=== PATIENT | male | born 1970 | race Caucasian/White ===

== ENCOUNTER 2017-11-15 03:08 | Emergency (ER) | payer MEDICARE, OTHER ==
[~2017-11-15] VITALS: Ht 182.9 cm; Wt 172.4 kg
[~2017-11-15 03:08] MED LIST: ASPI325 PO; ASPI81CH PO; GLIM4 PO; GLIP10 PO; IBUP600 PO; LISI20 PO; METF500 PO; METF500C PO; Metformin HCl1000 MG PO; Nitroglycerin0.4 MG SL; PIOG30 PO; Prinivil10 MG PO; SIMV40 PO; Simvastatin20 MG PO
[2017-11-15] MEDS ORDERED: IBUP600 PO (03:17)
[2017-11-15] MEDS ORDERED: INSULANPEN SC (03:18)
[2017-11-15 03:29] LABS: BASOPHILS ABSOLUTE AUTO 0.04 K/mm3 (0.00-0.23); BASOPHILS PERCENT AUTO 1 % (0-2); EOSINOPHILS ABSOLUTE AUTO 0.17 K/mm3 (0.00-0.68); EOSINOPHILS PERCENT AUTO 2 % (0-6); Hematocrit 41.3 % (37.0-53.0); Hemoglobin 14.1 g/dL (13.5-17.5); IMMATURE GRAN ABSOLUTE AUTO 0.02 K/mm3 (0.00-0.10); IMMATURE GRAN PERCENT AUTO 0 % (0-1); LYMPHOCYTES ABSOLUTE AUTO 2.18 K/mm3 (0.84-5.20); LYMPHOCYTES PERCENT AUTO 27 % (21-46); MONOCYTES ABSOLUTE AUTO 0.82 K/mm3 (0.16-1.47); MONOCYTES PERCENT AUTO 10 % (4-13); Mean Corpuscular HGB 28.6 pg (26.0-34.0); Mean Corpuscular HGB Conc 34.1 g/dL (31.5-36.5); Mean Corpuscular Volume 84 fL (80-100); Mean Platelet Volume 11.2 fL (9.1-12.4); NEUTROPHILS ABSOLUTE AUTO 4.86 K/mm3 (1.96-9.15); NEUTROPHILS PERCENT AUTO 60 % (41-73); Platelet Count 125 K/mm3 (150-400); RDW Coefficient Variation 12.6 % (11.7-14.2); RDW Standard Deviation 37.7 fL (35.1-46.3); Red Blood Cell Count 4.93 M/mm3 (4.30-5.90); White Blood Cell Count 8.09 K/mm3 (4.00-11.30)
[2017-11-15 03:47] LABS: Alanine Aminotransfer (ALT/SGP 39 U/L (12-78); Albumin, Blood 3.5 g/dL (3.4-5.0); Alk Phos 91 U/L (50-136); Anion Gap 7 mmol/L (6-16); Aspartate Aminotrans (AST/SGOT 19 U/L (12-37); Bilirubin, Total 0.3 mg/dL (0.1-1.0); Blood Urea Nitrogen 18 mg/dL (8-24); Bun/Creatinine Ratio 25.2 (12.0-20.0); CO2, Blood 29 mmol/L (21-32); Calcium, Blood 8.8 mg/dL (8.5-10.1); Chloride, Blood 101 mmol/L (98-108); Creatinine, Blood 0.71 mg/dL (0.60-1.20); Globulin, Blood 3.5 g/dL (2.2-4.0); Glomerular Filtration Rate >60 (60-); Glucose, Blood 271 mg/dL (70-99); Potassium, Blood 4.1 mmol/L (3.5-5.5); Sodium, Blood 137 mmol/L (136-145); Troponin I <0.015 ng/mL (0.000-0.040)
[2018-01-22] MEDS ORDERED: HYDCHL25 PO (10:07)
[2018-01-22] MEDS ORDERED: Omeprazole20 M1 PO (10:07)
[2018-01-22] MEDS ORDERED: Triamcinolone A15 G3 TOP (10:08)
== END 2017-11-15 04:47 | disposition home or self-care (01) ==
LOC: ER 03:08
PROVIDERS: Emergency Medicine
DX: R07.89 Other chest pain (principal); Z79.899 Other long term (current) drug therapy; Z79.82 Long term (current) use of aspirin; Z79.4 Long term (current) use of insulin; Z79.84 Long term (current) use of oral hypoglycemic drugs; E11.9 Type 2 diabetes mellitus without complications; I10 Essential (primary) hypertension; E78.00 Pure hypercholesterolemia, unspecified; Z87.891 Personal history of nicotine dependence
CPT/HCPCS: 36415; 71046; 80053; 83690; 84484; 85025; 93005; 93010; 99283

== ENCOUNTER → 2017-12-15 | Outpatient (CLI) | payer MEDICARE, OTHER ==
[~2017-12-15] MED LIST changes: +INSULANPEN
== END | disposition home or self-care (01) ==
LOC: LAB SHORT 09:00 → LAB 09:00
DX: L02.413 Cutaneous abscess of right upper limb (principal)
CPT/HCPCS: 87070; 87077; 87186; 87205

== ENCOUNTER 2018-02-20 01:52 | Observation (INO) | payer MEDICARE, OTHER ==
[~2018-02-20] VITALS: Ht 180.3 cm; Wt 164.9 kg
[~2018-02-20 01:52] MED LIST changes: +HYDCHL25 PO; -INSULANPEN; +INSULANPEN SC; +Omeprazole20 M1 PO; +Triamcinolone A15 G3 TOP
[2018-02-20] MEDS ORDERED: NITR.4SL SL (02:14)
[2018-02-20 02:33] LABS: BASOPHILS ABSOLUTE AUTO 0.04 K/mm3 (0.00-0.23); BASOPHILS PERCENT AUTO 0 % (0-2); EOSINOPHILS ABSOLUTE AUTO 0.03 K/mm3 (0.00-0.68); EOSINOPHILS PERCENT AUTO 0 % (0-6); Hematocrit 39.8 % (37.0-53.0); Hemoglobin 13.9 g/dL (13.5-17.5); IMMATURE GRAN ABSOLUTE AUTO 0.08 K/mm3 (0.00-0.10); IMMATURE GRAN PERCENT AUTO 1 % (0-1); LYMPHOCYTES ABSOLUTE AUTO 1.15 K/mm3 (0.84-5.20); LYMPHOCYTES PERCENT AUTO 10 % (21-46); MONOCYTES ABSOLUTE AUTO 1.21 K/mm3 (0.16-1.47); MONOCYTES PERCENT AUTO 11 % (4-13); Mean Corpuscular HGB 28.5 pg (26.0-34.0); Mean Corpuscular HGB Conc 34.9 g/dL (31.5-36.5); Mean Corpuscular Volume 82 fL (80-100); NEUTROPHILS PERCENT AUTO 78 % (41-73); Platelet Count 144 K/mm3 (150-400); RDW Coefficient Variation 12.7 % (11.7-14.2); RDW Standard Deviation 37.6 fL (35.1-46.3); Red Blood Cell Count 4.88 M/mm3 (4.30-5.90); White Blood Cell Count 11.41 K/mm3 (4.00-11.30)
[2018-02-20 03:00] LABS: Troponin I <0.015 ng/mL (0.000-0.040)
[2018-02-20 03:01] LABS: Alanine Aminotransfer (ALT/SGP 40 U/L (12-78); Albumin, Blood 3.4 g/dL (3.4-5.0); Alk Phos 60 U/L (50-136); Anion Gap 11 mmol/L (6-16); Aspartate Aminotrans (AST/SGOT 24 U/L (12-37); Bilirubin, Total 0.6 mg/dL (0.1-1.0); Blood Urea Nitrogen 16 mg/dL (8-24); Bun/Creatinine Ratio 19.7 (12.0-20.0); CO2, Blood 26 mmol/L (21-32); Calcium, Blood 8.8 mg/dL (8.5-10.1); Chloride, Blood 97 mmol/L (98-108); Creatinine, Blood 0.81 mg/dL (0.60-1.20); Globulin, Blood 3.5 g/dL (2.2-4.0); Glomerular Filtration Rate >60 (60-); Glucose, Blood 86 mg/dL (70-99); Potassium, Blood 3.8 mmol/L (3.5-5.5); Sodium, Blood 134 mmol/L (136-145); Total Protein, Blood 6.9 g/dL (6.4-8.2)
[2018-02-20 11:03] LABS: Hematocrit 38.2 % (37.0-53.0); Hemoglobin 13.3 g/dL (13.5-17.5); Mean Corpuscular HGB 28.7 pg (26.0-34.0); Mean Corpuscular HGB Conc 34.8 g/dL (31.5-36.5); Mean Corpuscular Volume 82 fL (80-100); Mean Platelet Volume 11.6 fL (9.1-12.4); Platelet Count 104 K/mm3 (150-400); RDW Coefficient Variation 12.8 % (11.7-14.2); RDW Standard Deviation 38.5 fL (35.1-46.3); Red Blood Cell Count 4.64 M/mm3 (4.30-5.90); White Blood Cell Count 9.29 K/mm3 (4.00-11.30)
[2018-02-20 11:14] LABS: CPK Creatine Kinase 152 U/L (39-308); Troponin I <0.015 ng/mL (0.000-0.040)
[2018-02-20 11:30] LABS: Alanine Aminotransfer (ALT/SGP 38 U/L (12-78); Albumin, Blood 3.3 g/dL (3.4-5.0); Alk Phos 58 U/L (50-136); Anion Gap 10 mmol/L (6-16); Aspartate Aminotrans (AST/SGOT 20 U/L (12-37); Bilirubin, Total 0.6 mg/dL (0.1-1.0); Blood Urea Nitrogen 15 mg/dL (8-24); Bun/Creatinine Ratio 19.8 (12.0-20.0); CO2, Blood 28 mmol/L (21-32); Calcium, Blood 8.6 mg/dL (8.5-10.1); Chloride, Blood 96 mmol/L (98-108); Creatinine, Blood 0.76 mg/dL (0.60-1.20); Globulin, Blood 3.4 g/dL (2.2-4.0); Glomerular Filtration Rate >60 (60-); Glucose, Blood 134 mg/dL (70-99); Potassium, Blood 3.7 mmol/L (3.5-5.5); Sodium, Blood 134 mmol/L (136-145); Total Protein, Blood 6.7 g/dL (6.4-8.2)
[2018-02-20] MEDS ORDERED: ASPI325 PO (17:22)
[2018-02-20] MEDS ORDERED: METO50ER PO (17:23)
== END 2018-02-20 18:10 | disposition home or self-care (01) ==
LOC: ER 01:52 → MEDS 01:53
PROVIDERS: Emergency Medicine; Internal Medicine
DX: I20.0 Unstable angina (principal); R91.8 Other nonspecific abnormal finding of lung field; I82.511 Chronic embolism and thrombosis of right femoral vein; I82.531 Chronic embolism and thrombosis of right popliteal vein; E78.00 Pure hypercholesterolemia, unspecified; E11.9 Type 2 diabetes mellitus without complications; I10 Essential (primary) hypertension; E66.01 Morbid (severe) obesity due to excess calories; K21.9 Gastro-esophageal reflux disease without esophagitis; Z79.899 Other long term (current) drug therapy; Z87.891 Personal history of nicotine dependence; Z79.82 Long term (current) use of aspirin; Z68.43 Body mass index [BMI] 50.0-59.9, adult
CPT/HCPCS: 36415; 71046; 71260; 80053; 82550; 82947; 84484; 85025; 85027; 85379; 93005; 93010; 93970; 96372; 99285; G0378; J1650; J1815; Q9967

== ENCOUNTER → 2018-10-03 | Outpatient (CLI) | payer MEDICARE, OTHER ==
[~2018-10-03] MED LIST changes: +METO50ER PO; +NITR.4SL SL
== END | disposition home or self-care (01) ==
LOC: LAB 16:41 → LAB SHORT 16:41
DX: L08.0 Pyoderma (principal)
CPT/HCPCS: 87070; 87077; 87186; 87205

== ENCOUNTER → 2018-10-24 | Outpatient (CLI) | payer MEDICARE, OTHER | END | disposition home or self-care (01) | LOC: LAB 16:37 → LAB SHORT 16:37 | DX: L08.0 Pyoderma (principal) | CPT/HCPCS: 87070; 87205 ==

== ENCOUNTER → 2019-07-09 | Outpatient (CLI) | payer MEDICARE, OTHER | END | disposition home or self-care (01) | LOC: LAB SHORT 14:34 → LAB 14:34 | DX: L08.0 Pyoderma (principal); L98.499 Non-pressure chronic ulcer of skin of other sites with unspecified severity | CPT/HCPCS: 87070; 87205 ==

== ENCOUNTER → 2019-11-06 | Outpatient (CLI) | payer MEDICARE, OTHER | END | disposition home or self-care (01) | LOC: LAB SHORT 14:35 → LAB 14:35 | DX: L08.0 Pyoderma (principal) | CPT/HCPCS: 87070; 87205 ==

== ENCOUNTER → 2020-01-21 | Outpatient (CLI) | payer MEDICARE, OTHER | END | disposition home or self-care (01) | LOC: LAB 17:59 → LAB SHORT 17:59 | DX: L08.0 Pyoderma (principal) | CPT/HCPCS: 87070; 87205 ==

== ENCOUNTER 2021-05-13 19:33 | Emergency (ER) | payer MEDICARE, OTHER ==
[~2021-05-13] VITALS: Ht 182.9 cm; Wt 161.0 kg
== END 2021-05-13 22:10 | disposition home or self-care (01) ==
LOC: ER 19:33
DX: S80.811A Abrasion, right lower leg, initial encounter (principal); M25.561 Pain in right knee; I10 Essential (primary) hypertension; E11.9 Type 2 diabetes mellitus without complications; E78.5 Hyperlipidemia, unspecified; Z23 Encounter for immunization; Z79.899 Other long term (current) drug therapy; Z79.4 Long term (current) use of insulin; Z79.82 Long term (current) use of aspirin; W19.XXXA Unspecified fall, initial encounter; Y92.000 Kitchen of unspecified non-institutional (private) residence as the place of occurrence of the external cause
CPT/HCPCS: 73562-RT; 90471; 90714; 99283-25

== ENCOUNTER 2021-06-10 05:42 | Emergency (ER) | payer MEDICARE, OTHER ==
[~2021-06-10] VITALS: Ht 182.9 cm; Wt 170.1 kg
[2021-06-10 06:01] LABS: Source, Urine Clean Catch
[2021-06-10 06:04] LABS: BASOPHILS ABSOLUTE AUTO 0.05 K/mm3 (0.00-0.23); BASOPHILS PERCENT AUTO 1 % (0-2); EOSINOPHILS ABSOLUTE AUTO 0.19 K/mm3 (0.00-0.68); EOSINOPHILS PERCENT AUTO 2 % (0-6); Hematocrit 43.7 % (37.0-53.0); Hemoglobin 14.6 g/dL (13.5-17.5); IMMATURE GRAN ABSOLUTE AUTO 0.03 K/mm3 (0.00-0.10); IMMATURE GRAN PERCENT AUTO 0 % (0-1); LYMPHOCYTES ABSOLUTE AUTO 1.91 K/mm3 (0.84-5.20); LYMPHOCYTES PERCENT AUTO 21 % (21-46); MONOCYTES ABSOLUTE AUTO 0.98 K/mm3 (0.16-1.47); MONOCYTES PERCENT AUTO 11 % (4-13); Mean Corpuscular HGB 28.5 pg (26.0-34.0); Mean Corpuscular HGB Conc 33.4 g/dL (31.5-36.5); Mean Corpuscular Volume 85 fL (80-100); Mean Platelet Volume 11.5 fL (9.1-12.4); NEUTROPHILS ABSOLUTE AUTO 5.75 K/mm3 (1.96-9.15); NEUTROPHILS PERCENT AUTO 65 % (41-73); Platelet Count 160 K/mm3 (150-400); RDW Coefficient Variation 12.9 % (11.7-14.2); RDW Standard Deviation 39.8 fL (35.1-46.3); Red Blood Cell Count 5.13 M/mm3 (4.30-5.90); White Blood Cell Count 8.91 K/mm3 (4.00-11.30)
[2021-06-10 06:15] LABS: Appearance, Urine Clear (Clear); Bilirubin, Urine Neg (Neg); Blood, Urine Neg (Neg); Color, Urine Yellow (P-Yellow); Glucose Qualitative, Urine Neg (Neg); Ketones, Urine Neg (Neg); Leukocyte Esterase, Urine Neg (Neg); Nitrite, Urine Neg (Neg); Protein, Urine Neg (Neg); Urobilinogen, Urine 2+ (Normal); pH, Urine 6.5 (5.0-8.0)
[2021-06-10 06:27] LABS: Alanine Aminotransfer (ALT/SGP 21 U/L (12-78); Albumin, Blood 3.2 g/dL (3.4-5.0); Albumin/Globulin Ratio 0.8 (0.8-1.8); Alk Phos 65 U/L (50-136); Anion Gap 5 mmol/L (6-16); Aspartate Aminotrans (AST/SGOT 17 U/L (12-37); Bilirubin, Total 0.4 mg/dL (0.1-1.0); Blood Urea Nitrogen 13 mg/dL (8-24); Bun/Creatinine Ratio 14.3 (12.0-20.0); CO2, Blood 32 mmol/L (21-32); Calcium, Blood 9.3 mg/dL (8.5-10.1); Chloride, Blood 102 mmol/L (98-108); Creatinine, Blood 0.91 mg/dL (0.60-1.20); Globulin, Blood 3.8 g/dL (2.2-4.0); Glomerular Filtration Rate >60 (60-); Glucose, Blood 98 mg/dL (70-99); Potassium, Blood 3.8 mmol/L (3.5-5.5); Sodium, Blood 139 mmol/L (136-145)
== END 2021-06-10 08:37 | disposition home or self-care (01) ==
LOC: ER 05:42
PROVIDERS: Emergency Medicine
DX: R10.32 Left lower quadrant pain (principal); I10 Essential (primary) hypertension; E11.9 Type 2 diabetes mellitus without complications; Z79.899 Other long term (current) drug therapy; Z79.84 Long term (current) use of oral hypoglycemic drugs; Z79.82 Long term (current) use of aspirin
CPT/HCPCS: 36415; 74177; 80053; 81003; 83690; 85025; 96374-59; 96375; 99284-25; J2405; J3010; Q9967

== ENCOUNTER → 2022-06-28 | Outpatient (CLI) | payer MEDICARE, OTHER | END | disposition home or self-care (01) | LOC: LAB SHORT 14:05 → LAB 14:05 | DX: L08.0 Pyoderma (principal) | CPT/HCPCS: 87070; 87077; 87147; 87186; 87205 ==

== ENCOUNTER → 2022-10-06 | Outpatient (CLI) | payer MEDICARE, OTHER | END | disposition home or self-care (01) | LOC: LAB SHORT 08:22 → PLD 08:22 → LAB 08:22 | DX: D49.2 Neoplasm of unspecified behavior of bone, soft tissue, and skin (principal) | CPT/HCPCS: 88305 ==

== ENCOUNTER → 2022-12-05 | Outpatient (CLI) | payer MEDICARE, OTHER ==
[2022-12-06 18:33] LABS: Protein, Urine Quantitative 5.4 mg/dL (0.0-11.9)
[2022-12-06 18:39] LABS: Microalbumin, Urine Quant. 5.61 mg/L (0.000-20.000)
== END | disposition home or self-care (01) ==
LOC: LAB SHORT 12:00 → LAB 12:00
PROVIDERS: Internal Medicine Nephrology
DX: N18.2 Chronic kidney disease, stage 2 (mild) (principal); D63.1 Anemia in chronic kidney disease; N25.81 Secondary hyperparathyroidism of renal origin; E55.9 Vitamin D deficiency, unspecified; E78.00 Pure hypercholesterolemia, unspecified; D51.8 Other vitamin B12 deficiency anemias; D52.8 Other folate deficiency anemias; D50.9 Iron deficiency anemia, unspecified; R76.9 Abnormal immunological finding in serum, unspecified; R94.5 Abnormal results of liver function studies; R94.6 Abnormal results of thyroid function studies
CPT/HCPCS: 81050; 82043; 82570; 84156

== ENCOUNTER 2023-05-14 12:30 | Inpatient (IN) | payer MEDICARE, OTHER ==
[~2023-05-14] VITALS: Ht 180.3 cm; Wt 164.6 kg
[~2023-05-14 12:30] MED LIST changes: +OMEP20ER PO; -Omeprazole20 M1 PO
[2023-05-14 13:50] LABS: Albumin, Blood 3.1 g/dL (3.4-5.0); Albumin/Globulin Ratio 0.9 (0.8-1.8); Bilirubin, Total 0.7 mg/dL (0.1-1.0); Bun/Creatinine Ratio 18.6 (12.0-20.0); Calcium, Blood 8.5 mg/dL (8.5-10.1); Creatinine, Blood 1.4 mg/dL (0.60-1.20); Globulin, Blood 3.3 g/dL (2.2-4.0); Potassium, Blood 4.3 mmol/L (3.5-5.5); Total Protein, Blood 6.4 g/dL (6.4-8.2)
[2023-05-14 13:54] LABS: BASOPHILS ABSOLUTE AUTO 0.05 K/mm3 (0.00-0.23); BASOPHILS PERCENT AUTO 1 % (0-2); EOSINOPHILS ABSOLUTE AUTO 0.09 K/mm3 (0.00-0.68); EOSINOPHILS PERCENT AUTO 1 % (0-6); Hematocrit 33.5 % (37.0-53.0); Hemoglobin 11.4 g/dL (13.5-17.5); IMMATURE GRAN ABSOLUTE AUTO 0.05 K/mm3 (0.00-0.10); IMMATURE GRAN PERCENT AUTO 1 % (0-1); LYMPHOCYTES ABSOLUTE AUTO 0.91 K/mm3 (0.84-5.20); LYMPHOCYTES PERCENT AUTO 8 % (21-46); MONOCYTES ABSOLUTE AUTO 0.83 K/mm3 (0.16-1.47); MONOCYTES PERCENT AUTO 8 % (4-13); Mean Corpuscular HGB 28.6 pg (26.0-34.0); Mean Corpuscular Volume 84 fL (80-100); NEUTROPHILS ABSOLUTE AUTO 9.11 K/mm3 (1.96-9.15); NEUTROPHILS PERCENT AUTO 83 % (41-73); RDW Coefficient Variation 14.1 % (11.7-14.2); RDW Standard Deviation 43.2 fL (35.1-46.3); Red Blood Cell Count 3.98 M/mm3 (4.30-5.90); White Blood Cell Count 11.04 K/mm3 (4.00-11.30)
[2023-05-14 14:25] LABS: Mean Platelet Volume 11.9 fL (9.1-12.4); Platelet Count 154 K/mm3 (150-400)
[2023-05-14 15:45] LABS: Source, Urine Clean Catch
[2023-05-14 15:50] LABS: Appearance, Urine Hazy (Clear); Blood, Urine Neg (Neg); Color, Urine Yellow (P-Yellow); Glucose Qualitative, Urine Neg (Neg); Ketones, Urine Neg (Neg); Leukocyte Esterase, Urine 1+ (Neg); Nitrite, Urine Neg (Neg); Protein, Urine 2+ (Neg); Specific Gravity, Urine 1.025 (1.003-1.022); Urobilinogen, Urine 3+ (Normal)
[2023-05-14 16:06] LABS: Bilirubin, Urine 2+ (Neg)
[2023-05-14 16:09] LABS: Hyaline Casts 25-50 /lpf (0-2); Mucus Mod (0-Heavy)
[2023-05-14 16:11] LABS: Amorphous Light (0-Heavy); Bacteria Many /hpf; Red Blood Cells, Urine 0-2 /hpf (0-2); Squamous Epithelial Cells Rare /hpf (Few); Transitional Epithelial Cells Rare /hpf (0-Rare); White Blood Cells, Urine 0-2 /hpf (0-5)
[2023-05-14 17:11] LABS: Influenza A, PCR NEGATIVE (NEGATIVE); Influenza B, PCR NEGATIVE (NEGATIVE); Resp Syncytial Virus, PCR NEGATIVE (NEGATIVE); SARS-Cov-2 (COVID-19) PCR, MMC NEGATIVE (NEGATIVE)
[2023-05-14 18:43] VITALS: BP 90/53
[2023-05-14 20:02] VITALS: BP 112/70
[2023-05-15] VITALS (111 sets, daily range): BP systolic 48–135; BP diastolic 20–92
[2023-05-15 03:04] LABS: BASOPHILS ABSOLUTE AUTO 0.06 K/mm3 (0.00-0.23); BASOPHILS PERCENT AUTO 0 % (0-2); EOSINOPHILS ABSOLUTE AUTO 0.08 K/mm3 (0.00-0.68); EOSINOPHILS PERCENT AUTO 1 % (0-6); Hematocrit 35.8 % (37.0-53.0); Hemoglobin 11.5 g/dL (13.5-17.5); IMMATURE GRAN ABSOLUTE AUTO 0.08 K/mm3 (0.00-0.10); IMMATURE GRAN PERCENT AUTO 1 % (0-1); LYMPHOCYTES ABSOLUTE AUTO 3.92 K/mm3 (0.84-5.20); LYMPHOCYTES PERCENT AUTO 26 % (21-46); MONOCYTES PERCENT AUTO 10 % (4-13); Mean Corpuscular HGB 28.1 pg (26.0-34.0); Mean Corpuscular HGB Conc 32.1 g/dL (31.5-36.5); Mean Corpuscular Volume 88 fL (80-100); Mean Platelet Volume 11.3 fL (9.1-12.4); NEUTROPHILS ABSOLUTE AUTO 9.31 K/mm3 (1.96-9.15); NEUTROPHILS PERCENT AUTO 62 % (41-73); Platelet Count 227 K/mm3 (150-400); RDW Coefficient Variation 14.5 % (11.7-14.2); RDW Standard Deviation 46.3 fL (35.1-46.3); Red Blood Cell Count 4.09 M/mm3 (4.30-5.90); White Blood Cell Count 14.95 K/mm3 (4.00-11.30)
[2023-05-15 03:30] LABS: Bun/Creatinine Ratio 19.5 (12.0-20.0); Calcium, Blood 8.2 mg/dL (8.5-10.1); Creatinine, Blood 1.49 mg/dL (0.60-1.20); Potassium, Blood 4.4 mmol/L (3.5-5.5)
[2023-05-15 03:45] LABS: Anti-Xa UFH, PHA Monitoring <0.10 IU/mL; International Normalized Ratio 1.13; Prothrombin Time Results 11.8 Sec (9.7-11.5)
--- NOTE | 2023-05-15 03:47 | NUR ---
SHIFT SUMMARY PLATE PREPARER CALLED OUT FOR ASSISTANCE THE PT FELL WHILE AMBULATING BACK FROM THE BATHROOM, OTHER NURSES RESPONDED TO THE BEDSIDE TO EVALUATE PATIENT. AFTER RETURNING THE PATIENT TO BED, RN'S REPORTED THE PT C/O CHEST PAIN AND STARTED VOMITING, WITH LOW BP, EKG OBTAINED. DR. MEYER NOTIFIED AND EVALUATED PT AT BEDSIDE. PT TRANSFERED TO ICU, REPORT GIVEN TO RECEIVING NURSE.
--- NOTE | 2023-05-15 05:13 | NUR ---
PE'S EXPLAINED TO PT REGARDING BLOOD CLOTS TO LUNGS. EXPLAINED NEED TO START TPA AND RISK OF BLEEDING. PT AGREED AND EXPRESSED UNDERSTANDING REGARDING PE'S AND RISK OF BLEEDING. PT DENIES ANY BLEEDING, HEAD TUMORS OR SURGERIES. UNABLE TO REACH FAMILY. MESSAGE LEFT.
--- NOTE | 2023-05-15 07:10 | NUR ---
ORDER TELEPHONE ORDER FROM DR. MEYER TO RESTART HEPARIN 30 MIN AFTER TPA IS FINISHED. THIS ORDER RELAYED TO PHARMACY WHO STATED, " IT IS OK TO RESART HEPARIN AT PREVIOUS RATE.
--- NOTE | 2023-05-15 07:44 | NUR ---
ARRIVAL TO ICU PT ARRIVED TO ICU VIA ED GURNEY. PT A/O X 4. PALE, AND DIAPHORETIC. PT HAVING INTERMINENT CHEST PAIN AND RIGHT SHOULDER PAIN. HYPOTENSIVE BUT DENIED DIZZINESS. HOSP AT BEDSIDE. LEVOPHED STARTED AND TITRATED TO KEEP MAP GREATER THEN 65. VASO STARTED APPROX 0320. PRESSORS INITIATED IN PIV WHILE HOSP PLACED CENTRAL LINE. AFTER CENTRAL LINE PLACED, HOSP GAVE VERBAL ORDER TO USE CENTRAL LINE BEFORE XRAY. PIV W/ PRESSORS INFILTRATED. PHARM AND HOSP CONSULTED. AREA MARKED, IV ASPIRATED, HEAT APPLIED, ARM ELEVATED AND REGITINE GIVEN PER PHARM RECOMMENDATIONS . PT DOWN TO CT WITH THIS RN. TPA STARTED AT 0533, STOPPED AT 0725. CUTLER INSERTED AND UA SENT TO LAB. PATENT AND DRAINING TO GRAVITY. PT HAD MULTIPLE INC LOOSE BM'S T/O SHIFT. ATTEMPTED TO CALL "MOTHER" ON FACESHEET. NUMBER LISTED IS PT'S CELL PHONE. HOSP CALLED REGARDING CRITICAL LA, AND ELEVATED BNP. PT LESS PALE THIS AM, TALKING MORE AND REPORTING FEELING BETTER. LEVOPHED AND VASO INFUSING. NS AT 125ML/HR. HEPARIN RESTARTED AT 0755 PER ORDER. REPORT GIVEN TO DAY SHIFT RN.
[2023-05-15 08:07] LABS: Source, Urine Foley catheter
[2023-05-15 08:10] LABS: Appearance, Urine Hazy (Clear); Bilirubin, Urine Neg (Neg); Blood, Urine Neg (Neg); Color, Urine Yellow (P-Yellow); Glucose Qualitative, Urine Neg (Neg); Ketones, Urine Neg (Neg); Leukocyte Esterase, Urine Neg (Neg); Nitrite, Urine Neg (Neg); Protein, Urine 2+ (Neg); Urobilinogen, Urine 1+ (Normal)
[2023-05-15 08:17] LABS: Bacteria Rare /hpf; Hyaline Casts 0-2 /lpf (0-2); Mucus Light (0-Heavy); Red Blood Cells, Urine 0-2 /hpf (0-2); Squamous Epithelial Cells Few /hpf (Few); White Blood Cells, Urine 0-2 /hpf (0-5)
[2023-05-15 11:26] LABS: Hemoglobin 11.9 g/dL (13.5-17.5)
[2023-05-15 16:29] LABS: Hematocrit 32.3 % (37.0-53.0); Hemoglobin 10.7 g/dL (13.5-17.5)
--- NOTE | 2023-05-15 18:52 | NUR ---
SHIFT SUMMARY: NO ACUTE CHANGES SINCE ASSUMPTION OF CARE AT APPROX 0900 THIS AM. THE PT REMAINS A&O TO ALL, IS PLEASANT & COOPERATIVE W/ CARE MEASURES. DENIES PAIN AT REST, BUT C/O BACK PAIN W/ LOG ROLLING OR REPOSITIONING. LS ARE COARSE, DIM. PT ON 6L NC W/ O2 SATS > 95% ON AVG. MONITOR SHOWS SB-SR W/ HR 50-60s, HYPOTENSIVE W/ LEVOPHED INFUSING. TITRATED DOWN THIS SHIFT FROM 23 MCG/MIN TO 8 MCG/MIN W/ VASOPRESSIN NOW OFF WELL. PT DENIES CP. BROWN LOOSE/ UNFORMED STLS W/ HYPERACTIVE BT THIS SHIFT. PT HAS BEEN INCONTINENT OF BOWEL AT TIMES. CUTLER PATENT/ DRAINING DARK YELLOW URINE W/ LARGE AMNTS SEDIMENT. SKIN CONDITION OVERALL FRAGILE, ECCHYMOTIC. LARGE HEMATOMA TO LEFT BARRIGA W/ PRESSURE DRESSING IN PLACE, IMPROVED. BLEEDING TO RIGHT IJ CENTRAL LINE HAS IMPROVED SIGNIFICANTLY THIS AFTERNOON. H&H SENT PER ORDERS AT APPROX 1830. WILL CONTINUE TO MONITOR & REPORT OFF TO ONCOMING RN.
[2023-05-15 19:03] LABS: Hematocrit 31.8 % (37.0-53.0); Hemoglobin 10.5 g/dL (13.5-17.5)
--- NOTE | 2023-05-15 22:06 | NUR ---
ASSUMED CARE ASSUMED CARE AT 1900. PT A/O X 4. CALM AND COOPERATIVE WITH CARE. FOLLOWS DIRECTIONS AND MOVES ALL EXTREMITIES. LEVOPHED, HEPARIN AND NS AT 125 ML/HR INFUSING. SEE FLOWSHEET FOR TITRATIONS. VSS. SR/SB 50-60'S. CL DRSG OOZING BUT INTACT. ON 6L AT START OF SHIFT, TITRATED DOWN TO 2L NC. CUTLER PATENT AND DRAINING TO GRAVITY.
[2023-05-16] VITALS (54 sets, daily range): BP systolic 91–149; BP diastolic 58–111
[2023-05-16 04:59] LABS: BASOPHILS ABSOLUTE AUTO 0.03 K/mm3 (0.00-0.23); BASOPHILS PERCENT AUTO 0 % (0-2); EOSINOPHILS ABSOLUTE AUTO 0.08 K/mm3 (0.00-0.68); EOSINOPHILS PERCENT AUTO 1 % (0-6); Hematocrit 29.8 % (37.0-53.0); Hemoglobin 9.7 g/dL (13.5-17.5); IMMATURE GRAN ABSOLUTE AUTO 0.03 K/mm3 (0.00-0.10); IMMATURE GRAN PERCENT AUTO 0 % (0-1); LYMPHOCYTES ABSOLUTE AUTO 1.11 K/mm3 (0.84-5.20); LYMPHOCYTES PERCENT AUTO 12 % (21-46); MONOCYTES ABSOLUTE AUTO 0.83 K/mm3 (0.16-1.47); MONOCYTES PERCENT AUTO 9 % (4-13); Mean Corpuscular HGB 28.4 pg (26.0-34.0); Mean Corpuscular HGB Conc 32.6 g/dL (31.5-36.5); Mean Corpuscular Volume 87 fL (80-100); Mean Platelet Volume 11.6 fL (9.1-12.4); NEUTROPHILS ABSOLUTE AUTO 7.55 K/mm3 (1.96-9.15); NEUTROPHILS PERCENT AUTO 79 % (41-73); Platelet Count 120 K/mm3 (150-400); RDW Coefficient Variation 14.2 % (11.7-14.2); RDW Standard Deviation 45.1 fL (35.1-46.3); Red Blood Cell Count 3.41 M/mm3 (4.30-5.90); White Blood Cell Count 9.63 K/mm3 (4.00-11.30)
[2023-05-16 05:27] LABS: Magnesium, Blood 1.9 mg/dL (1.6-2.4)
[2023-05-16 05:50] LABS: Albumin, Blood 2.7 g/dL (3.4-5.0); Albumin/Globulin Ratio 0.9 (0.8-1.8); Bilirubin, Total 0.3 mg/dL (0.1-1.0); Bun/Creatinine Ratio 18.7 (12.0-20.0); Calcium, Blood 7.6 mg/dL (8.5-10.1); Creatinine, Blood 1.66 mg/dL (0.60-1.20); Globulin, Blood 2.9 g/dL (2.2-4.0); Phosphorus, Blood 3.9 mg/dL (2.5-4.9); Potassium, Blood 4.3 mmol/L (3.5-5.5); Total Protein, Blood 5.6 g/dL (6.4-8.2)
--- NOTE | 2023-05-16 06:41 | NUR ---
SHIFT SUMMARY NO ACUTE EVENTS T/O NIGHT. PT REMAINS A/O AND FOLLOWING COMMANDS. VSS. LEVOPHED OFF APPROX 0200. ON RA MOST OF THE NIGHT, PT DID DESAT THIS AM TO 78%. RECOVERED QUICKLY WHEN WOKEN UP AND PLACED ON 2L NC. PT IS COUGHING UP CLEAR THIN SPUTUM. NS AT 125ML/HR. CL DRSG CHANGED THIS SHIFT. NO OOZING NOTED AFTER CHANGE. PRESSURE DRSG REMOVED FROM L BARRIGA D/T PT DISCOMFORT. CUTLER PATENT AND DRAINING TO GRAVITY. NO BM THIS SHIFT.
[2023-05-16 17:28] LABS: Albumin, Blood 2.8 g/dL (3.4-5.0); Albumin/Globulin Ratio 0.9 (0.8-1.8); Bilirubin, Total 0.3 mg/dL (0.1-1.0); Bun/Creatinine Ratio 18.5 (12.0-20.0); Creatinine, Blood 1.51 mg/dL (0.60-1.20); Potassium, Blood 4.2 mmol/L (3.5-5.5); Total Protein, Blood 5.8 g/dL (6.4-8.2)
--- NOTE | 2023-05-16 18:19 | NUR ---
SHIFT SUMMARY: NO ACUTE CHANGES SINCE PRIOR UPDATES. PT REMAINS A&O, PLEASANT & COOPERATIVE. HE DENIES PAIN OVERALL, STS SOME RIGHT SHOULDER PAIN W/ MOVEMENT THAT HE ATTRIBUTES TO FALLING AT HOME PRIOR TO ADMISSION. LS DIM IN BASES, PT ON 2L NC W/ O2 SATS > 95% ON AVG. MONITOR SHOWS SB-SR W/ HR 50-70s, BP STABLE. PT DENIES CP. NO GI COMPLAINTS, IS TOLERATING PO INTAKE WELL, NO BM THIS SHIFT. CUTLER PATENT/ DRAINING YELLOW URINE W/ MOD AMNTS SEDIMENT NOTED IN TUBING. SKIN CONDITION OVERALL FRAGILE, ECCHYMOTIC. NO FURTHER BLEEDING HAS BEEN NOTED FROM CENTRAL LINE TO RIGHT IJ. Q2H REPOSITIONING TO MAINTAIN SKIN INTEGRITY. THE PT WAS ABLE TO TRANSFER W/ MIN ASSIST, GAIT BELT & FWW TO RECLINER CHAIR & SIT UP FOR APPROX 2 HRS. WILL CONTINUE TO MONITOR & REPORT OFF TO ONCOMING RN.
--- NOTE | 2023-05-16 19:54 | NUR ---
ASSUMPTION OF CARE: ALERT AND ORIENTED TO TIME,PERSON,PLACE AND SIUTATION. CALM AND COOPERATIVE WITH CARE. NASAL CANNULA IN PLACE ON 2L. SATS MAINTAINING >95%. NO C/O SOB. CONTINUOUS CARDIAC MONITORING IN PLACE, SINUS RHYTHM HR 60'S, SBP 130'S. NO C/O CHEST PAIN OR PRESSURE. CENTRAL LINE IN PLACE, INFUSING HEPARIN AT 15 UNITS/KG/HR. POWERGLIDE IN JOSEPH, SALINE LOCKED AT THIS TIME. CUTLER IN PLACE, PATENT AND DRAINING TO GRAVITY PALE YELLOW URINE. PCU STATUS AT THIS TIME. SEE SHIFT ASSESSMENT FOR FULL ASSESSMENT.
[2023-05-17] VITALS (8 sets, daily range): BP systolic 122–148; BP diastolic 68–102
[2023-05-17 03:34] LABS: BASOPHILS ABSOLUTE AUTO 0.01 K/mm3 (0.00-0.23); BASOPHILS PERCENT AUTO 0 % (0-2); EOSINOPHILS ABSOLUTE AUTO 0.14 K/mm3 (0.00-0.68); EOSINOPHILS PERCENT AUTO 2 % (0-6); Hematocrit 26.6 % (37.0-53.0); Hemoglobin 8.8 g/dL (13.5-17.5); IMMATURE GRAN ABSOLUTE AUTO 0.03 K/mm3 (0.00-0.10); IMMATURE GRAN PERCENT AUTO 1 % (0-1); LYMPHOCYTES ABSOLUTE AUTO 0.96 K/mm3 (0.84-5.20); LYMPHOCYTES PERCENT AUTO 16 % (21-46); MONOCYTES ABSOLUTE AUTO 0.56 K/mm3 (0.16-1.47); MONOCYTES PERCENT AUTO 9 % (4-13); Mean Corpuscular HGB 28.3 pg (26.0-34.0); Mean Corpuscular HGB Conc 33.1 g/dL (31.5-36.5); Mean Corpuscular Volume 86 fL (80-100); Mean Platelet Volume 10.9 fL (9.1-12.4); NEUTROPHILS ABSOLUTE AUTO 4.24 K/mm3 (1.96-9.15); NEUTROPHILS PERCENT AUTO 71 % (41-73); Platelet Count 115 K/mm3 (150-400); RDW Coefficient Variation 14.1 % (11.7-14.2); RDW Standard Deviation 43.9 fL (35.1-46.3); Red Blood Cell Count 3.11 M/mm3 (4.30-5.90); White Blood Cell Count 5.94 K/mm3 (4.00-11.30)
[2023-05-17 03:54] LABS: Bun/Creatinine Ratio 17.5 (12.0-20.0); Calcium, Blood 7.7 mg/dL (8.5-10.1); Creatinine, Blood 1.26 mg/dL (0.60-1.20); Potassium, Blood 4.2 mmol/L (3.5-5.5)
--- NOTE | 2023-05-17 05:36 | NUR ---
SHIFT SUMMARY: NO ACUTE EVENTS T/O THE SHIFT. REMAINS ALERT AND ORIENTED TO TIME, PERSON, PLACE AND SITUATION. CENTRAL LINE PULLED AND HELD MANUAL PRESSURE FOR 15 MINUTES, WITH NO HEMATOMA, BLEEDING OR COMPLICATIONS. PT TOLERATED WELL. LUNG SOUNDS CLEAR IN THE UPPER LOBES AND DIM IN THE BASES. REMAINS ON NC 2L WITH SPO2 >95%. NO C/O SOB. CONTINUOUS CARDIAC MONITORING IN PLACE WITH SR, 60'S. SBP 140'S. NO C/O CHEST PAIN OR PRESSURE. POWERGLIDE REMAINS IN PLACE IN LEFT UPPER ARM, INFUSING HEPARIN AT 15 UNITS/KG/HR AND TKO AT 10ML/HR. REPOSITIONED Q2 HOURS WITH ASSISTANCE. CUTLER IN PLACE FOR STRICT I&O. PATENT AND DRAINING PALE YELLOW URINE TO GRAVITY. BROTHER UPDATED TO PLAN OF CARE. REMAINS PCU STATUS T/O THE SHIFT.
--- NOTE | 2023-05-17 17:28 | NUR ---
SHIFT SUMMARY NO MAJOR CHANGES DURING SHIFT. PATIENT O2 TITRATED DOWN TO 1LPM. ATTEMPTED TO TITRATE O2 OF, BUT PATIENT SPO2 DROPS TO MID TO HIGH 80'S WITH MINIMAL EXERTION. OMAYRA REMOVED AND JOSEPH KUO REMOVED THIS SHIFT.
--- NOTE | 2023-05-17 19:32 | NUR ---
PT ARRIVED TO THE MEDICAL FLOOR FROM THE ICU VIA WHELCHAIR. PT IS A/OX4, PLEASANT AND COOPERATIVE, APPEARS TO BE BREATHING EASILY ON O2 @ 1L/MIN AT THIS TIME. PT WAS ORIENTED TO HE ROOM LAYOUT AND CALL SYSTEM. CALL LIGHT IN REACH. REPORT GIVEN TO JUNE DAVILA
[2023-05-18 01:00] VITALS: BP 145/81
[2023-05-18 03:13] LABS: BASOPHILS ABSOLUTE AUTO 0.03 K/mm3 (0.00-0.23); BASOPHILS PERCENT AUTO 1 % (0-2); EOSINOPHILS ABSOLUTE AUTO 0.18 K/mm3 (0.00-0.68); EOSINOPHILS PERCENT AUTO 3 % (0-6); Hemoglobin 8.7 g/dL (13.5-17.5); IMMATURE GRAN ABSOLUTE AUTO 0.05 K/mm3 (0.00-0.10); IMMATURE GRAN PERCENT AUTO 1 % (0-1); LYMPHOCYTES ABSOLUTE AUTO 1.14 K/mm3 (0.84-5.20); LYMPHOCYTES PERCENT AUTO 22 % (21-46); MONOCYTES ABSOLUTE AUTO 0.52 K/mm3 (0.16-1.47); MONOCYTES PERCENT AUTO 10 % (4-13); Mean Corpuscular HGB 28.5 pg (26.0-34.0); Mean Corpuscular HGB Conc 33.5 g/dL (31.5-36.5); Mean Corpuscular Volume 85 fL (80-100); Mean Platelet Volume 10.4 fL (9.1-12.4); NEUTROPHILS ABSOLUTE AUTO 3.36 K/mm3 (1.96-9.15); NEUTROPHILS PERCENT AUTO 64 % (41-73); Platelet Count 122 K/mm3 (150-400); RDW Standard Deviation 43.4 fL (35.1-46.3); Red Blood Cell Count 3.05 M/mm3 (4.30-5.90); White Blood Cell Count 5.28 K/mm3 (4.00-11.30)
[2023-05-18 03:39] LABS: Bun/Creatinine Ratio 14.4 (12.0-20.0); Calcium, Blood 8.1 mg/dL (8.5-10.1); Creatinine, Blood 1.04 mg/dL (0.60-1.20); Potassium, Blood 4.1 mmol/L (3.5-5.5)
--- NOTE | 2023-05-18 05:51 | NUR ---
SHIFT SUMMARY HEPARIN GTT TITRATED UP TO 19 U/KG/HR OVERNIGHT. PT TRIALED ON RA, SATING AT 92-94% WHILE AWAKE. DESAT TO THE 80S WHILE SLEEPING. 1L O2 PLACED BACK ON THE PT AND HAS BEEN SATING IN THE 90S SINCE. NO OTHER ACUTE CHANGES IN ASSESSMENT AT THIS TIME. PT VOIDING WELL. CALL LIGHT IN REACH. VS REVIEWED. DENIES OTHER NEEDS AT THIS TIME.
[2023-05-18 08:17] VITALS: BP 144/86
[2023-05-18] MEDS ORDERED: VISBIOME 112.51 EACH PO (13:57)
[2023-05-18] MEDS ORDERED: AZIT250 PO (13:57)
[2023-05-18] MEDS ORDERED: CEFD300 PO (13:58)
[2023-05-18] MEDS ORDERED: ELIQUIS5 M2 PO (13:59)
--- NOTE | 2023-05-18 14:53 | NUR ---
SHIFT SUMMARY PT AWAKE DURING SHIFT REPORT, RESTING QUIETLY WATCHING TV. PT CURRENTLY REMAINS ON HEPARIN DRIP PER PHARMACY. DOSE ADJUSTED EARLIER TODAY; SEE EMAR. PT ONLY ON 1L O2, VIA N/C AT START OF SHIFT. PT PLACED ON RA WITH BIOX 94-96%. DR PARKER REQUESTED PT PLACED ON RA; DONE. PT'S BIOX REMAINS WNL'S. D/C ORDERS PLACED. HOME O2 EVAL BEING COMPLETED AT THIS TIME. PT UP TO CHAIR FOR MEALS. ABLE TO WORK WITH THERAPY TODAY. DENIED FURTHER NEEDS AT THIS TIME. CALL LT IN REACH.
[2023-05-18 15:15] VITALS: BP 152/77
--- NOTE | 2023-05-18 18:14 | NUR ---
O2 ORDERED PER HOME O2 EVAL RECOMMENDATIONS. PT NEEDING 4L WITH EXERTION. O2 ORDERED BY [employer] COORDINATOR AND DELIVERED. 1ST DOSE OF ELIQUIS ORDERED AND GIVEN PRIOR TO D/C. PT ABLE TO DRESS HIMSELF. CALLED HIS MOM FOR RIDE HOME. ASSISTED OUT TO PT ENTRANCE TO WAIT FOR HIS MOM. ALL BELONGINGS AND OXYGEN WITH PT.
== END 2023-05-18 17:59 | disposition home health service (06) | DRG 175 ==
LOC: ER 12:30 → MEDS 18:12 → ER 18:12 → SURS 18:12 → MEDS 18:13 → ICUE 18:13 → SURS 18:33 → MEDS 18:33 → ICUE 05-15 03:03 → MEDS 05-15 09:33 → ICUE 05-15 09:34 → MEDS 05-17 18:15
PROVIDERS: Emergency Medicine; Family Medicine; Internal Medicine; Internal Medicine Critical Care Medicine; Nurse Practitioner Acute Care; Student in an Organized Health Care Education/Training Program; ADMIT Internal Medicine
PROC: 02HV33Z Insertion of Infusion Device into Superior Vena Cava, Percutaneous Approach (ICD-10-PCS; principal; 2023-05-15)
PROC: 3E033XZ Introduction of Vasopressor into Peripheral Vein, Percutaneous Approach (ICD-10-PCS; 2023-05-15)
PROC: 3E03317 Introduction of Other Thrombolytic into Peripheral Vein, Percutaneous Approach (ICD-10-PCS; 2023-05-15)
DX: I26.99 Other pulmonary embolism without acute cor pulmonale (principal); J18.9 Pneumonia, unspecified organism; J96.00 Acute respiratory failure, unspecified whether with hypoxia or hypercapnia; R57.8 Other shock; N17.9 Acute kidney failure, unspecified; Z68.43 Body mass index [BMI] 50.0-59.9, adult; L76.32 Postprocedural hematoma of skin and subcutaneous tissue following other procedure; L76.22 Postprocedural hemorrhage of skin and subcutaneous tissue following other procedure; E66.01 Morbid (severe) obesity due to excess calories; R55 Syncope and collapse; D50.0 Iron deficiency anemia secondary to blood loss (chronic); Z20.822 Contact with and (suspected) exposure to COVID-19; E11.22 Type 2 diabetes mellitus with diabetic chronic kidney disease; I12.9 Hypertensive chronic kidney disease with stage 1 through stage 4 chronic kidney disease, or unspecified chronic kidney disease; K21.9 Gastro-esophageal reflux disease without esophagitis; E78.00 Pure hypercholesterolemia, unspecified; F32.A Depression, unspecified; F17.210 Nicotine dependence, cigarettes, uncomplicated; I87.8 Other specified disorders of veins; R74.01 Elevation of levels of liver transaminase levels; R91.1 Solitary pulmonary nodule; W19.XXXA Unspecified fall, initial encounter; N18.2 Chronic kidney disease, stage 2 (mild); Y83.8 Other surgical procedures as the cause of abnormal reaction of the patient, or of later complication, without mention of misadventure at the time of the procedure; Z79.899 Other long term (current) drug therapy; Z79.811 Long term (current) use of aromatase inhibitors; Z86.718 Personal history of other venous thrombosis and embolism; Z79.02 Long term (current) use of antithrombotics/antiplatelets; Z79.84 Long term (current) use of oral hypoglycemic drugs; Z79.82 Long term (current) use of aspirin; Z79.4 Long term (current) use of insulin; Z90.89 Acquired absence of other organs; Z79.2 Long term (current) use of antibiotics; Z79.01 Long term (current) use of anticoagulants
CPT/HCPCS: 0241U; 36415; 36556; 51702; 71045; 71260; 80048; 80053; 81001; 82330; 82947; 83605; 83735; 83880; 84100; 84145; 84484; 85014; 85018; 85025; 85379; 85520; 85610; 87086; 93005; 93010; 94760; 94761; 94762; 96365; 96367; 96375; 96376; 97110; 97116; 97162; 97165; 97530; 97535; 99285-25; A9270; C1751; C8929; G0378; J0456; J0696; J1644; J2405; J2760; J2997; J3010; J7030; J7040; J7050; J7060; Q9957; Q9967

== ENCOUNTER 2023-05-25 16:11 | Emergency (ER) | payer MEDICARE, OTHER ==
[~2023-05-25] VITALS: Ht 180.3 cm; Wt 172.4 kg
[~2023-05-25 16:11] MED LIST changes: +AZIT250 PO; +CEFD300 PO; +ELIQUIS5 M2 PO; +VISBIOME 112.51 EACH PO
[2023-05-25 16:49] LABS: Source, Urine Straight Cath
[2023-05-25 16:49] LABS: BASOPHILS ABSOLUTE AUTO 0.03 K/mm3 (0.00-0.23); BASOPHILS PERCENT AUTO 0 % (0-2); EOSINOPHILS ABSOLUTE AUTO 0.04 K/mm3 (0.00-0.68); EOSINOPHILS PERCENT AUTO 1 % (0-6); Hematocrit 30.5 % (37.0-53.0); Hemoglobin 9.8 g/dL (13.5-17.5); IMMATURE GRAN ABSOLUTE AUTO 0.06 K/mm3 (0.00-0.10); IMMATURE GRAN PERCENT AUTO 1 % (0-1); LYMPHOCYTES ABSOLUTE AUTO 0.75 K/mm3 (0.84-5.20); LYMPHOCYTES PERCENT AUTO 9 % (21-46); MONOCYTES ABSOLUTE AUTO 0.69 K/mm3 (0.16-1.47); MONOCYTES PERCENT AUTO 8 % (4-13); Mean Corpuscular HGB 28.4 pg (26.0-34.0); Mean Corpuscular HGB Conc 32.1 g/dL (31.5-36.5); Mean Corpuscular Volume 88 fL (80-100); Mean Platelet Volume 10.7 fL (9.1-12.4); NEUTROPHILS ABSOLUTE AUTO 6.78 K/mm3 (1.96-9.15); NEUTROPHILS PERCENT AUTO 81 % (41-73); Platelet Count 186 K/mm3 (150-400); RDW Coefficient Variation 15.4 % (11.7-14.2); RDW Standard Deviation 48.6 fL (35.1-46.3); Red Blood Cell Count 3.45 M/mm3 (4.30-5.90); White Blood Cell Count 8.35 K/mm3 (4.00-11.30)
[2023-05-25 16:52] LABS: Bilirubin, Urine Neg (Neg); Blood, Urine Neg (Neg); Glucose Qualitative, Urine Neg (Neg); Ketones, Urine Neg (Neg); Leukocyte Esterase, Urine Neg (Neg); Nitrite, Urine Neg (Neg); Protein, Urine 1+ (Neg); Specific Gravity, Urine 1.015 (1.003-1.022); Urobilinogen, Urine 2+ (Normal); pH, Urine 6.5 (5.0-8.0)
[2023-05-25 17:03] LABS: Color, Urine Yellow (P-Yellow)
[2023-05-25 17:04] LABS: Appearance, Urine Hazy (Clear); Mucus Mod (0-Heavy)
[2023-05-25 17:05] LABS: Bacteria Few /hpf; Calcium Oxalate Crystals Mod /hpf; Red Blood Cells, Urine 0-2 /hpf (0-2); Squamous Epithelial Cells Few /hpf (Few); White Blood Cells, Urine 0-2 /hpf (0-5)
[2023-05-25 17:07] LABS: Albumin/Globulin Ratio 0.9 (0.8-1.8); Bilirubin, Total 0.7 mg/dL (0.1-1.0); Bun/Creatinine Ratio 16.6 (12.0-20.0); Calcium, Blood 8.9 mg/dL (8.5-10.1); Creatinine, Blood 0.96 mg/dL (0.60-1.20); Globulin, Blood 3.4 g/dL (2.2-4.0); Magnesium, Blood 2.1 mg/dL (1.6-2.4); Potassium, Blood 3.7 mmol/L (3.5-5.5); Total Protein, Blood 6.4 g/dL (6.4-8.2)
[2023-05-26 10:48] VITALS: BP 135/63
== END 2023-05-26 14:40 | disposition home or self-care (01) ==
LOC: ER 16:11
PROVIDERS: Emergency Medicine
DX: E11.65 Type 2 diabetes mellitus with hyperglycemia (principal); R62.7 Adult failure to thrive; E78.00 Pure hypercholesterolemia, unspecified; F32.A Depression, unspecified; I10 Essential (primary) hypertension; Z79.899 Other long term (current) drug therapy; Z86.711 Personal history of pulmonary embolism; Z79.01 Long term (current) use of anticoagulants; Z79.82 Long term (current) use of aspirin; Z79.84 Long term (current) use of oral hypoglycemic drugs
CPT/HCPCS: 80053; 81001; 82947; 83605; 83690; 83735; 83880; 84484; 85025; 93005; 93010; 97110; 97162; 97530; 99285-25; A9270

== ENCOUNTER 2024-03-07 20:21 | Inpatient (IN) | payer MEDICARE, OTHER ==
[~2024-03-07] VITALS: Ht 188 cm; Wt 164.6 kg
[2024-03-07 20:59] LABS: BASOPHILS ABSOLUTE AUTO 0.05 K/mm3 (0.00-0.23); BASOPHILS PERCENT AUTO 1 % (0-2); EOSINOPHILS ABSOLUTE AUTO 0.07 K/mm3 (0.00-0.68); EOSINOPHILS PERCENT AUTO 1 % (0-6); Hematocrit 33.4 % (37.0-53.0); Hemoglobin 10.9 g/dL (13.5-17.5); IMMATURE GRAN ABSOLUTE AUTO 0.04 K/mm3 (0.00-0.10); IMMATURE GRAN PERCENT AUTO 0 % (0-1); LYMPHOCYTES ABSOLUTE AUTO 1.21 K/mm3 (0.84-5.20); LYMPHOCYTES PERCENT AUTO 13 % (21-46); MONOCYTES PERCENT AUTO 10 % (4-13); Mean Corpuscular HGB 27.5 pg (26.0-34.0); Mean Corpuscular HGB Conc 32.6 g/dL (31.5-36.5); Mean Corpuscular Volume 84 fL (80-100); Mean Platelet Volume 11.6 fL (9.1-12.4); NEUTROPHILS ABSOLUTE AUTO 6.79 K/mm3 (1.96-9.15); NEUTROPHILS PERCENT AUTO 75 % (41-73); Platelet Count 171 K/mm3 (150-400); RDW Coefficient Variation 14.6 % (11.7-14.2); RDW Standard Deviation 43.4 fL (35.1-46.3); Red Blood Cell Count 3.96 M/mm3 (4.30-5.90); White Blood Cell Count 9.06 K/mm3 (4.00-11.30)
[2024-03-07] MEDS ORDERED: NS 1,000 ML IV SCH (21:05)
[2024-03-07] MEDS ORDERED: SILVER SULFADIA2011 TOP (21:06)
[2024-03-07] MEDS ORDERED: ESCI20 PO (21:07)
[2024-03-07] MEDS ORDERED: BUMETANIDE2 M6 PO (21:07)
[2024-03-07 21:22] LABS: Albumin, Blood 3.2 g/dL (3.4-5.0); Albumin/Globulin Ratio 0.8 (0.8-1.8); Bilirubin, Total 0.7 mg/dL (0.1-1.0); Bun/Creatinine Ratio 17.7 (12.0-20.0); Calcium, Blood 8.8 mg/dL (8.5-10.1); Creatinine, Blood 1.13 mg/dL (0.60-1.20); Globulin, Blood 3.8 g/dL (2.2-4.0); Potassium, Blood 4.9 mmol/L (3.5-5.5)
[2024-03-07] MEDS ORDERED: Heparin Sodium,Porcine/0.5 NS 500 ML IV SCH (23:20)
[2024-03-07 23:31] LABS: Anti-Xa UFH, PHA Monitoring <0.10 IU/mL; International Normalized Ratio 1.11; Prothrombin Time Results 11.8 Sec (9.7-11.5)
[2024-03-07] MEDS ORDERED: Heparin Sodium 5000 Units/ML 1ML MDV IV ONE (23:40)
[2024-03-08] VITALS (67 sets, daily range): BP systolic 83–147; BP diastolic 51–121
[2024-03-08] MEDS ORDERED: NS 1,000 ML IV SCH (01:35)
[2024-03-08] MEDS ORDERED: Ondansetron HCl 2 MG / ML 2ML Vial IV PRN (01:35)
[2024-03-08] MEDS ORDERED: FentaNYL Citrate 50 MCG/ML 2 ML Injection IV PRN (01:40)
[2024-03-08] MEDS ORDERED: VICTOZA 2-0.6 MG/0.1 SC (02:48)
[2024-03-08] MEDS ORDERED: MULVITA PO (02:49)
[2024-03-08] MEDS ORDERED: VITAMIN D350 MC3 PO (02:49)
--- NOTE | 2024-03-08 05:28 | NUR ---
PT ADMITTED TO ROOM ICU 3 FROM ED. ARRIVES AT 0130. PT SLIDE TRANSFERRED TO BED. PT DENIES DYSPNEA, OR CHEST PAIN OR PRESSURE. PT STARTED ON HEPARIN DRIP. VERIFIED WITH LOLA CASTANEDA. PT PARTICIPATES IN ADMISSION PROCESS. GOOD HISTORIAN. WILL CONTINUE TO MONITOR PT, AND WILL REPORT OFF TO ONCOMING RN.
[2024-03-08 06:18] LABS: BASOPHILS ABSOLUTE AUTO 0.06 K/mm3 (0.00-0.23); BASOPHILS PERCENT AUTO 1 % (0-2); EOSINOPHILS ABSOLUTE AUTO 0.13 K/mm3 (0.00-0.68); EOSINOPHILS PERCENT AUTO 2 % (0-6); Hematocrit 31.5 % (37.0-53.0); Hemoglobin 10.4 g/dL (13.5-17.5); IMMATURE GRAN ABSOLUTE AUTO 0.02 K/mm3 (0.00-0.10); IMMATURE GRAN PERCENT AUTO 0 % (0-1); LYMPHOCYTES ABSOLUTE AUTO 1.63 K/mm3 (0.84-5.20); LYMPHOCYTES PERCENT AUTO 23 % (21-46); MONOCYTES ABSOLUTE AUTO 0.83 K/mm3 (0.16-1.47); MONOCYTES PERCENT AUTO 12 % (4-13); Mean Corpuscular HGB 28.2 pg (26.0-34.0); Mean Corpuscular Volume 85 fL (80-100); Mean Platelet Volume 11.4 fL (9.1-12.4); NEUTROPHILS ABSOLUTE AUTO 4.57 K/mm3 (1.96-9.15); NEUTROPHILS PERCENT AUTO 63 % (41-73); Platelet Count 142 K/mm3 (150-400); RDW Coefficient Variation 14.7 % (11.7-14.2); RDW Standard Deviation 44.1 fL (35.1-46.3); Red Blood Cell Count 3.69 M/mm3 (4.30-5.90); White Blood Cell Count 7.24 K/mm3 (4.00-11.30)
[2024-03-08 06:46] LABS: Albumin, Blood 2.9 g/dL (3.4-5.0); Albumin/Globulin Ratio 0.8 (0.8-1.8); Bilirubin, Total 0.6 mg/dL (0.1-1.0); Bun/Creatinine Ratio 16.7 (12.0-20.0); Calcium, Blood 8.1 mg/dL (8.5-10.1); Creatinine, Blood 1.14 mg/dL (0.60-1.20); Globulin, Blood 3.7 g/dL (2.2-4.0); Potassium, Blood 4.3 mmol/L (3.5-5.5); Total Protein, Blood 6.6 g/dL (6.4-8.2)
[2024-03-08] MEDS ORDERED: Clarify Drug Order XX ONE (06:55)
[2024-03-08] MEDS ORDERED: Insulin Human Lispro 100 Units/ML 3ML Syringe SC SCH (07:30)
[2024-03-08] MEDS ORDERED: Citalopram Hydrobromide 20 MG Tab PO SCH (09:00)
--- NOTE | 2024-03-08 10:26 | NUR ---
ASSUMED CARE OF PT AT 0700 PT RESTING ON BED, APPEARS TO BE SLEEPING BUT ROUSES EASILY TO VERBAL STIMULI. PT ORIENTED AND COOPERATIVE W/ CARE. ATTEMPTS TO PARTICIPATE DURING REPOSITIONING. PT ON 1L VIA NC WHILE AWAKE, SATS >95%. PT ON CONTINUOUS MONITOR, RATE OF 60S OBSERVED. PT BP STABLE- SBP 100-110S. CURRENTLY NPO. PT USING URINAL TO VOID W/OUT ISSUE. CALL LIGHT W/ IN REACH, CARE CONTINUES
[2024-03-08] MEDS ORDERED: Dose Adjust by Pharmacy XX STA (13:25)
--- NOTE | 2024-03-08 17:31 | NUR ---
End of shift summary. No acute events during shift. Pt sitting up on bed, watching Tv. Alert, oriented, and pleasant. Uses call light appropriately and is independently using urinal in bed. Plans to transfer pt to [facility] for thrombectomy- in progress. Heparin gtt is infusion as ordered at 18units/kg/hr. Pt is on 4l via nc, sats >95%. Pt on continuous electronic device monitor, nsr rate of 80s. Pt hr decreases to high 50s while sleeping. BP remains soft, systolics 90-100s, map >75. Pt put on consistent carb diet and ate his full lunch and dinner trays. Call light within reach, care continues.
--- NOTE | 2024-03-08 19:50 | NUR ---
ASSUMED CARE OF PT AT 1900. REPORT RECEIVED FROM JESUSITA RN. PT RESTING IN BED WATCHING TELEVISION. ON 4LPM O2 VIA NC WITH SATURATION OF 100%. PT ALERT AND ORIENTED AND COOPERATIVE WITH CARE. NO ACUTE NEEDS IDENTIFIED AT THIS TIME. SEE SHIFT ASSESSMENT FOR FULL DETAILS.
--- NOTE | 2024-03-08 23:00 | NUR ---
SPOKE WITH [facility] ASSISTANT PROSECUTING ATTORNEY. THE BED THEY ANTICIPATED BEING AVAILABLE FOR PATIENT IS NOT OPEN. THEY WILL REACH OUT WHEN A BED BECOMES AVAILABLE. [facility] COORDINATOR # .
[2024-03-09] VITALS (23 sets, daily range): BP systolic 97–125; BP diastolic 55–91
--- NOTE | 2024-03-09 01:51 | NUR ---
REPORT GIVEN TO [facility] NURSE RE: TRANSFER TO RM 7A, 16. WILL AWAIT TRANSFER.
[2024-03-09 03:56] LABS: BASOPHILS ABSOLUTE AUTO 0.07 K/mm3 (0.00-0.23); BASOPHILS PERCENT AUTO 1 % (0-2); EOSINOPHILS PERCENT AUTO 3 % (0-6); Hematocrit 30.4 % (37.0-53.0); IMMATURE GRAN ABSOLUTE AUTO 0.02 K/mm3 (0.00-0.10); IMMATURE GRAN PERCENT AUTO 0 % (0-1); LYMPHOCYTES ABSOLUTE AUTO 1.31 K/mm3 (0.84-5.20); LYMPHOCYTES PERCENT AUTO 21 % (21-46); MONOCYTES ABSOLUTE AUTO 0.76 K/mm3 (0.16-1.47); MONOCYTES PERCENT AUTO 12 % (4-13); Mean Corpuscular HGB 27.9 pg (26.0-34.0); Mean Corpuscular HGB Conc 32.9 g/dL (31.5-36.5); Mean Corpuscular Volume 85 fL (80-100); Mean Platelet Volume 10.8 fL (9.1-12.4); NEUTROPHILS ABSOLUTE AUTO 3.91 K/mm3 (1.96-9.15); NEUTROPHILS PERCENT AUTO 62 % (41-73); Platelet Count 141 K/mm3 (150-400); RDW Coefficient Variation 14.9 % (11.7-14.2); RDW Standard Deviation 44.6 fL (35.1-46.3); Red Blood Cell Count 3.59 M/mm3 (4.30-5.90); White Blood Cell Count 6.27 K/mm3 (4.00-11.30)
[2024-03-09 04:15] LABS: Albumin, Blood 2.8 g/dL (3.4-5.0); Albumin/Globulin Ratio 0.8 (0.8-1.8); Bilirubin, Total 0.6 mg/dL (0.1-1.0); Bun/Creatinine Ratio 14.3 (12.0-20.0); Creatinine, Blood 1.19 mg/dL (0.60-1.20); Globulin, Blood 3.6 g/dL (2.2-4.0); Potassium, Blood 4.3 mmol/L (3.5-5.5); Total Protein, Blood 6.4 g/dL (6.4-8.2)
[2024-03-09] MEDS ORDERED: Dose Adjust by Pharmacy XX STA (04:26)
[2024-03-09] MEDS ORDERED: Heparin Sodium 5000 Units/ML 1ML MDV IV ONE (04:30)
--- NOTE | 2024-03-09 05:31 | NUR ---
SHIFT SUMMARY PT REMAINED ALERT AND ORIENTED X 4 T/O ENTIRETY OF SHIFT. ABLE TO FOLLOW COMMANDS, MAKE PURPOSEFUL MOVEMENTS, AND MAKE NEEDS KNOWN. AFEBRILE AND DENIES PAIN. CONTINOUS CARDIAC MONITORING IN PLACE SHOWING SR WITH HR IN 60'S-70'S. SBP 90'S-120'S. REMAINED ON 4LPM O2 VIA NC WITH O2 SATURATIONS > 92%. UTILIZES BESIDE URINAL. NO BM THIS SHIFT. TOLERATED PO INTAKE WELL. VARIOUS SKIN TEARS T/O. PROVIDER AWARE AND PHOTOS IN CHART. HEPARIN INFUSING AT 20 U/KG/HR. PT HAS BED ASSIGNMENT AT [facility], AWAITING GROUND TRANSPORT. WILL CONTINUE TO MONITOR AND REPORT TO ONCOMING RN.
--- NOTE | 2024-03-09 07:49 | NUR ---
AM NOTE.... PT IS TO TRANSFER TO [facility] FOR BILATERAL PEs AND BILATERAL DVTs. PT IS A&Ox4 VSS. HE IS IN SR IN THE 60'S. BP STABLE PT DENIES ANY CP. PT C/O OF 4/10 PAIN TO HIS LLE, THE PT'S LLE IS RED AND HOT TO THE TOUCH. PULSES PALPABLE TO THE LLE AND FAINT TO THE RLE. L/S CLEAR T/O DIM IN THE BASES, PT IS ON 2L NC WHILE SLEEPING D/T APOLONIA. MEDICAL TRANSPORT ARRIVED APROX 0730, REPORT GIVEN TO MEDICAL TRANSPORT, ALL PT BELONGINGS PACKED AND SENT WITH THE PT. REPORT WAS GIVEN TO BEE DAVILA AT [facility].
== END 2024-03-09 07:46 | disposition short-term general hospital (02) | DRG 175 ==
LOC: ER 20:21 → ICUE 23:45 → ERHOLD 23:45 → ICUE 03-08 01:31
PROVIDERS: Family Medicine; Student in an Organized Health Care Education/Training Program; ADMIT Internal Medicine
DX: I26.99 Other pulmonary embolism without acute cor pulmonale (principal); J96.01 Acute respiratory failure with hypoxia; I82.433 Acute embolism and thrombosis of popliteal vein, bilateral; I82.452 Acute embolism and thrombosis of left peroneal vein; I82.412 Acute embolism and thrombosis of left femoral vein; I95.9 Hypotension, unspecified; E11.9 Type 2 diabetes mellitus without complications; D64.9 Anemia, unspecified; K21.9 Gastro-esophageal reflux disease without esophagitis; I10 Essential (primary) hypertension; E78.00 Pure hypercholesterolemia, unspecified; F32.A Depression, unspecified; I27.20 Pulmonary hypertension, unspecified; Z79.84 Long term (current) use of oral hypoglycemic drugs; Z79.899 Other long term (current) drug therapy; Z79.82 Long term (current) use of aspirin; Z79.01 Long term (current) use of anticoagulants; Z90.89 Acquired absence of other organs; Z87.891 Personal history of nicotine dependence
CPT/HCPCS: 71260; 80053; 82947; 83690; 83880; 84484; 85025; 85520; 85610; 85730; 93005; 93010; 93306; 93970; 94762; 96361; 96365-59; 96366-59; 96376-59; 99285-25; A9270; C1751; G0378; J1644; J3010; J7030; Q9967